=== PATIENT | male | born 1940 | race Caucasian/White ===

== ENCOUNTER 2024-09-19 08:13 | Inpatient (IN) | payer MEDICARE, BC ==
[2024-09-19 09:05] LABS: #Basophils Less than 0.03 10x3/uL (0.0-0.2); %Basophils 0.3 % (0.0-1.0); %Lymphocytes 9.5 % (21.0-51.0); %Monocytes 15.1 % (0.0-10.0); %Neutrophils 73.6 % (42.0-75.0); Hematocrit 32.9 % (42.0-52.0); Hemoglobin 10.8 g/dL (14.0-18.0); Mean Corpuscular HGB CONC 32.8 g/dL (32.0-36.0); Mean Corpuscular Hemoglobin 33.4 pg (27.0-31.0); Mean Corpuscular Volume 101.9 fL (78.0-98.0); Mean Platelet Volume 9.4 fL (7.4-10.4); Platelet Count 183 10x3/uL (130-400); RBC Distribution Width 14.2 % (11.5-14.5); Red Blood Cell (RBC) Count 3.23 mill/uL (4.70-6.10)
[2024-09-19 09:46] LABS: ALT (SGPT) 12 U/L (8-55); AST (SGOT) 20 U/L (5-34); Albumin 3.2 g/dL (3.4-4.8); Alkaline Phosphatase 77 U/L (40-110); Anion Gap 14 mmol/L (10-20); BUN (Urea Nitrogen) 26 mg/dL (8.4-25.7); Bilirubin, Total 0.7 mg/dL (0.2-1.2); Calc. Creatinine Clearance 0 mL/min (70-130); Calcium 8.7 mg/dL (7.8-10.44); Carbon Dioxide 21 mmol/L (23-31); Chloride 106 mmol/L (98-107); Estimated GFR 77; Glucose 83 mg/dL (83-110); Protein, Total 6.2 g/dL (5.8-8.1); Sodium 137 mmol/L (136-145)
[2024-09-19] MEDS ORDERED: Dexamethasone 10 MG/ML VIAL ONE (09:53)
[2024-09-19] MEDS ORDERED: LevoFLOXacin 250 MG TAB ONE (10:10)
[2024-09-19] MEDS ORDERED: LevoFLOXacin 500 MG TAB ONE (10:10)
[2024-09-19 10:41] LABS: Troponin I 0.015 ng/mL (< 0.028)
[2024-09-19] MEDS ORDERED: Albuterol 200 PUFF (6.7GM INHALER) INH PRN (12:03)
[2024-09-19] MEDS ORDERED: traMADol HCl 50 MG TAB PO PRN ×2 (12:03)
[2024-09-19] MEDS ORDERED: guaiFENesin 200 MG TAB PO PRN (13:57)
[2024-09-19] MEDS ORDERED: Iopamidol-370 76% 500 ML MDV (1 ML CHARGE) ONE (15:47)
[2024-09-19] MEDS: REMDESIVIR 200 MG in Sodium Chloride 0.9% 250 ML 210 ML IV SCH (18:04)
[2024-09-19 18:12] VITALS: BMI 24.3
[2024-09-19] MEDS: Atorvastatin Calcium 10 MG TAB PO SCH (20:08)
[2024-09-19] MEDS: Gabapentin 300 MG CAP PO SCH (20:09)
[2024-09-19] MEDS: Naproxen 500 MG TAB PO SCH (21:14)
[2024-09-19] MEDS: diphenhydrAMINE 25 MG CAP PO SCH (21:15)
[2024-09-19] MEDS: Latanoprost 0.005% Ophth Soln 2.5 ml Bottle EA EYE SCH (22:08)
[2024-09-19] MEDS: DorzolamidE/Timolol 2%/0.5% Ophth Soln 10 ml Bottle EA EYE SCH ×2 (22:08→22:09)
[2024-09-20 05:10] LABS: #Basophils 0.03 10x3/uL (0.0-0.2); #Eosinophils Less than 0.03 10x3/uL (0.0-0.7); %Basophils 0.5 % (0.0-1.0); %Lymphocytes 15.9 % (21.0-51.0); %Monocytes 6.3 % (0.0-10.0); Hemoglobin 10.5 g/dL (14.0-18.0); Mean Corpuscular HGB CONC 32.8 g/dL (32.0-36.0); Mean Corpuscular Hemoglobin 33.5 pg (27.0-31.0); Mean Corpuscular Volume 102.2 fL (78.0-98.0); Mean Platelet Volume 9.9 fL (7.4-10.4); Platelet Count 201 10x3/uL (130-400); Red Blood Cell (RBC) Count 3.13 mill/uL (4.70-6.10)
[2024-09-20 06:08] LABS: ALT (SGPT) 11 U/L (8-55); AST (SGOT) 20 U/L (5-34); Albumin 2.7 g/dL (3.4-4.8); Alkaline Phosphatase 68 U/L (40-110); Anion Gap 12 mmol/L (10-20); BUN (Urea Nitrogen) 25 mg/dL (8.4-25.7); Bilirubin, Direct 0.2 mg/dL (0.1-0.3); Bilirubin, Total 0.4 mg/dL (0.2-1.2); Calc. Creatinine Clearance 69 mL/min (70-130); Calcium 8.5 mg/dL (7.8-10.44); Carbon Dioxide 23 mmol/L (23-31); Chloride 110 mmol/L (98-107); Estimated GFR 87; Glucose 97 mg/dL (83-110); Potassium 4.5 mmol/L (3.5-5.1); Protein, Total 5.6 g/dL (5.8-8.1); Sodium 140 mmol/L (136-145)
[2024-09-20] MEDS ORDERED: Gabapentin 300 MG CAP PO SCH (09:00)
[2024-09-20] MEDS ORDERED: Atorvastatin Calcium 10 MG TAB PO SCH (09:00)
[2024-09-20] MEDS: Enoxaparin 40 MG (0.4 mL) SYRINGE SC SCH (10:00)
[2024-09-20] MEDS: Dexamethasone 4 MG TAB PO SCH (10:00)
[2024-09-20] MEDS: dilTIAZem CD 120 MG CAP PO SCH (10:01)
[2024-09-20] MEDS: Cholecalciferol (Vitamin D3) 400 UNITS TAB PO SCH (10:01)
[2024-09-20] MEDS: Aspirin Chewable 81 MG TAB PO SCH (10:01)
[2024-09-20] MEDS: Zinc Sulfate 220 MG CAP PO SCH (10:01)
[2024-09-20] MEDS: Ascorbic Acid 500 mg Chewable Tablet PO SCH (10:02)
[2024-09-20] MEDS: Pantoprazole DR 40 MG TAB PO SCH (10:02)
[2024-09-20] MEDS: REMDESIVIR 100 MG in Sodium Chloride 0.9% 250 ML 230 ML IV SCH (12:59)
[2024-09-20] MEDS: Gabapentin 300 MG CAP PO SCH (20:37)
[2024-09-20] MEDS: Latanoprost 0.005% Ophth Soln 2.5 ml Bottle EA EYE SCH (20:39)
[2024-09-21] MEDS: Pantoprazole DR 40 MG TAB PO SCH (08:32)
[2024-09-21] MEDS: Benzonatate 100 MG CAP PO PRN (08:41)
[2024-09-21] MEDS: Acetaminophen 325 MG TAB PO PRN (08:41)
[2024-09-21] MEDS: Lisinopril 10 MG TAB PO SCH (11:39)
[2024-09-21 18:39] VITALS: BMI 24.3
[2024-09-23 11:50] VITALS: TEMP 98.2
[2024-09-23 13:11] VITALS: BP 137/86
== END 2024-09-23 13:55 | disposition home or self-care (01) | DRG 871 ==
LOC: ERS 08:13 → 2NO 11:35 → T4-B 09-22 15:24
PROVIDERS: ADMIT Student in an Organized Health Care Education/Training Program; ATTEND Internal Medicine
DX: A41.9 Sepsis, unspecified organism (principal); J96.01 Acute respiratory failure with hypoxia; U07.1 COVID-19; I48.20 Chronic atrial fibrillation, unspecified; E78.5 Hyperlipidemia, unspecified; K21.9 Gastro-esophageal reflux disease without esophagitis; I25.10 Atherosclerotic heart disease of native coronary artery without angina pectoris; D73.89 Other diseases of spleen; Z79.899 Other long term (current) drug therapy; Z88.0 Allergy status to penicillin; Z79.82 Long term (current) use of aspirin; Z88.8 Allergy status to other drugs, medicaments and biological substances; K76.9 Liver disease, unspecified; L98.8 Other specified disorders of the skin and subcutaneous tissue; D64.9 Anemia, unspecified; Z87.891 Personal history of nicotine dependence; M85.88 Other specified disorders of bone density and structure, other site
CPT/HCPCS: 36415; 71045; 71275; 80048; 80053; 80076; 83605; 83880; 84484; 85025; 87040; 87428; 93005; 94760; 96374; 97139; J0248; J1100; J1650; J7050; J8540; Q9967

== ENCOUNTER 2024-11-03 15:10 | Outpatient (CLI) | payer MEDICARE, BC | END 2024-11-03 15:11 | disposition home or self-care (01) | LOC: BICRAD 15:10 | PROVIDERS: ATTEND Podiatrist | DX: L97.519 Non-pressure chronic ulcer of other part of right foot with unspecified severity (principal) ==